=== PATIENT | male | born 1955 | race Caucasian/White ===

== ENCOUNTER 2018-09-30 04:26 | Outpatient (CLI) | payer SELFPAY ==
[2018-09-30 08:41] LABS: CHOL/HDL RATIO 4.06 (0.00-4.99)
[2018-09-30 08:45] LABS: HEMOGLOBIN A1C 5.9 % (4.5-6.2)
== END 2018-09-30 23:59 | disposition home or self-care (01) ==
LOC: HW HEART 04:26
DX: Z13.6 Encounter for screening for cardiovascular disorders (principal)
CPT/HCPCS: 36415

== ENCOUNTER 2019-11-05 01:35 | Outpatient (CLI) | payer SELFPAY ==
[2019-11-05 09:11] LABS: CHOL/HDL RATIO 4.18 (0.00-4.99)
== END 2019-11-05 23:59 | disposition home or self-care (01) ==
LOC: HW HEART 01:35
DX: Z13.6 Encounter for screening for cardiovascular disorders (principal)
CPT/HCPCS: 36415

== ENCOUNTER 2020-01-06 21:25 | Emergency (ER) | payer MEDICARE, BC ==
[~2020-01-06] VITALS: Ht 182.9 cm; Wt 82.3 kg
[2020-01-06 21:28] VITALS: BP 142/68
[2020-01-06] MEDS ORDERED: DOXYCYCLINE 100MG CAPSULE PO STA (21:49)
[2020-01-06] MEDS ORDERED: DOXY100C77 PO (21:57)
== END 2020-01-06 22:31 | disposition home or self-care (01) ==
LOC: ER 21:26
DX: T63.481A Toxic effect of venom of other arthropod, accidental (unintentional), initial encounter (principal); L03.113 Cellulitis of right upper limb; Z88.0 Allergy status to penicillin; Y92.89 Other specified places as the place of occurrence of the external cause
CPT/HCPCS: 99283

== ENCOUNTER 2022-03-08 11:48 | Emergency (ER) | payer MEDICARE, BC ==
[~2022-03-08] VITALS: Ht 182.9 cm; Wt 84.1 kg
[2022-03-08 12:05] VITALS: BP 112/73
== END 2022-03-08 14:17 | disposition home or self-care (01) ==
LOC: ER 11:48
DX: S01.01XA Laceration without foreign body of scalp, initial encounter (principal); Z88.0 Allergy status to penicillin; W19.XXXA Unspecified fall, initial encounter; Y93.89 Activity, other specified; Y92.89 Other specified places as the place of occurrence of the external cause; Y99.8 Other external cause status
CPT/HCPCS: 12001; 99282